=== PATIENT | female | born 1965 | race Caucasian/White ===

== ENCOUNTER 2017-06-09 02:56 | Emergency (ER) | payer MEDICAID, SELFPAY ==
[2017-06-09 02:57] VITALS: BP 151/99; PULSE 84; RESP 17; O2SAT 98; BMI 34.0
[2017-06-09 03:33] VITALS: BP 136/80; PULSE 63; RESP 16; O2SAT 97
--- NOTE | 2017-06-09 03:33 | ED.VISSUMM ---
- ER Visit Summary Date of Service: 06/09/17 Chief Complaint: Acute on chronic hypertension and nausea History of Present Illness: The patient is a 51 F history of anxiety and hypertension. Brayden was watching her granddaughter who is had nausea, vomiting and diarrhea since Saturday night. And who is also patient in the ER currently. Grandmother got nervous because the patient had nausea vomiting diarrhea tonight. And then the grandmother also got nauseated. She thinks when she got nauseated because to be anxious and made her blood pressure go up. She denies any headache or chest pain. She denies any abdominal pain. She herself has not vomited nor had any diarrhea. Physical Examination: Very well appearing middle-aged female. Vital signs are stable afebrile. Her current blood pressure is 159. She does not look septic or toxic. She is in no acute distress. She is well-hydrated. HEENT exam unremarkable moist wheeze membranes. No facial droop. Normal speech. Neck nontender. Lungs clear to auscultation bilaterally. Heart regular rate and rhythm no murmur. Abdomen is soft and nontender. Normal bowel sounds no peritoneal signs. Both the right upper right lower quadrants are unremarkable. She is moving all 4 extremities. Neurovascular intact. Neurologic exam is normal. Back exam is nontender. Test Results: Nursing staff obtain an EKG which is a sinus rhythm rate is 75 with no acute signs of NC or ischemia. Testing. Emergency Department Course and Treatment: Patient has anxiety and is nauseated. Her blood pressure slightly elevated but currently is 151/78. She will be discharged home with a Zofran home pack. Treatment Plan: Zofran as needed for nausea. Return if feeling worse. Disposition: Discharge Impression: Acute on chronic hypertension Acute anxiety. Nausea This note was generated with [employer] software. It may contain incorrect words, spelling, and punctuation that were not noted in review of the chart prior to signing ED Disposition - Plan for ED Patient: Chief Complaint: Hypertension Referrals: Marcus Sánchez III, MD [Primary Care Provider] -
--- NOTE | 2017-06-09 03:36 | ED.DEP ---
ED Disposition - Plan for ED Patient: Disposition: Home or Assisted Living Chief Complaint: Hypertension Instructions: ED Hypertension Conf Out Of Control Referrals: Marcus Sánchez III, MD [Primary Care Provider] - 3-5 Days if not improving Additional Instructions: Zofran as needed for nausea. Plenty of fluids and rest. Watch her blood pressure over the next week. Log your blood pressure twice daily. And if it continually runs higher than 150/90 follow-up with her primary care physician to have your medications evaluated.
--- NOTE | 2017-06-09 03:36 | ED.DCSUM_ITS ---
- ER Visit Summary Date of Service: 06/09/17 Chief Complaint: Acute on chronic hypertension and nausea History of Present Illness: The patient is a 51 F history of anxiety and hypertension. Brayden was watching her granddaughter who is had nausea, vomiting and diarrhea since Saturday night. And who is also patient in the ER currently. Grandmother got nervous because the patient had nausea vomiting diarrhea tonight. And then the grandmother also got nauseated. She thinks when she got nauseated because to be anxious and made her blood pressure go up. She denies any headache or chest pain. She denies any abdominal pain. She herself has not vomited nor had any diarrhea. Physical Examination: Very well appearing middle-aged female. Vital signs are stable afebrile. Her current blood pressure is 159. She does not look septic or toxic. She is in no acute distress. She is well-hydrated. HEENT exam unremarkable moist wheeze membranes. No facial droop. Normal speech. Neck nontender. Lungs clear to auscultation bilaterally. Heart regular rate and rhythm no murmur. Abdomen is soft and nontender. Normal bowel sounds no peritoneal signs. Both the right upper right lower quadrants are unremarkable. She is moving all 4 extremities. Neurovascular intact. Neurologic exam is normal. Back exam is nontender. Test Results: Nursing staff obtain an EKG which is a sinus rhythm rate is 75 with no acute signs of RI or ischemia. Testing. Emergency Department Course and Treatment: Patient has anxiety and is nauseated. Her blood pressure slightly elevated but currently is 151/78. She will be discharged home with a Zofran home pack. Treatment Plan: Zofran as needed for nausea. Return if feeling worse. Disposition: Discharge Impression: Acute on chronic hypertension Acute anxiety. Nausea This note was generated with [employer] software. It may contain incorrect words, spelling, and punctuation that were not noted in review of the chart prior to signing ED Disposition - Plan for ED Patient: Chief Complaint: Hypertension Referrals: Marcus Sánchez III, MD [Primary Care Provider] -
[2017-06-09 03:49] VITALS: BP 130/80
[2017-06-09] MEDS: Ondansetron ODT 4 MG Tablet PO (03:51)
== END 2017-06-09 03:51 | disposition home or self-care (01) ==
PROVIDERS: Emergency Provider Emergency Medicine; Family Provider Family Medicine; PCP Family Medicine
DX: I10 Essential (primary) hypertension (principal); F41.9 Anxiety disorder, unspecified; R11.0 Nausea
CPT/HCPCS: 93005; 99282

== ENCOUNTER 2018-06-12 18:00 | Emergency (ER) | payer MEDICAID, SELFPAY ==
[2018-06-12 18:01] VITALS: BP 154/98; PULSE 79; RESP 16; TEMP 36.7; O2SAT 97; BMI 33.3
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
[2018-06-12] MEDS: Ibuprofen 600 MG Tablet PO (19:09)
[2018-06-12 20:31] VITALS: PULSE 84; RESP 19; O2SAT 98
--- NOTE | 2018-06-12 20:32 | ED.RN ---
THIS NURSE REVIEWED D/C INSTRUCTIONS WITH PT. PT VERBALIZED UNDERSTANDING OF INSTRUCTIONS. PT DENIES FURTHER NEEDS OR QUESTIONS AT THIS TIME. PT AMBULATES FROM ROOM ON OWN WITHOUT ASSISTANCE FROM STAFF
== END 2018-06-12 20:33 | disposition home or self-care (01) ==
PROVIDERS: Emergency Provider Emergency Medicine; Family Provider Family Medicine; PCP Family Medicine
DX: S63.501A Unspecified sprain of right wrist, initial encounter (principal); S80.01XA Contusion of right knee, initial encounter; V43.52XA Car driver injured in collision with other type car in traffic accident, initial encounter; Y93.89 Activity, other specified; Y92.9 Unspecified place or not applicable; I10 Essential (primary) hypertension; Z87.891 Personal history of nicotine dependence
CPT/HCPCS: 73110; 73564; 99284

== ENCOUNTER → 2018-06-16 11:53 | Outpatient (CLI) | payer MEDICAID, SELFPAY ==
[2018-06-12 18:01] VITALS: BMI 33.3
--- NOTE | 2018-06-16 11:57 | BI_ITS ---
MAMMOGRAPHY - BILATERAL SCREENING REASON FOR EXAM: Female, 52 years old. Routine annual screening examination. PERTINENT HISTORY: Non-contributory. TECHNIQUE: Digital bilateral breast michele (3D mammographic acquisition) in the CC and MLO projections. 2-D mediolateral oblique (MLO) and craniocaudad (CC) views of both breasts were obtained. CAD: Full Field Digital Mammography with Computer Added Detection was performed. COMPARISON: Comparison is made with prior outside examination dated March 08, 2016. FINDINGS: Breast Composition: The breasts are heterogeneously dense, which may obscure small masses. There are no dominant masses or suspicious calcifications. Stable appearance of the small bilateral axillary lymph nodes. No other significant abnormalities are identified. There has been no significant change since the prior study. BI/SCREEN MAMM (CAD) W/MICHELE BILAT IMPRESSION: Stable bilateral screening mammogram. Yearly follow-up mammogram recommended. (A) ASSESSMENT CATEGORY: BIRADS Category 2: Benign. A letter regarding these results will be sent to the patient by the facility within 30 days. Approximately 10% of breast cancers are not detected by mammography. A normal mammogram should not delay biopsy of a clinically suspicious abnormality. [id number] Electronically Signed: Wilmar Nunes, at 14:01 EDT , Service support ,
== END ==
PROVIDERS: Family Provider Family Medicine; PCP Family Medicine; Referring Provider Obstetrics & Gynecology; Visit Provider Obstetrics & Gynecology
DX: Z12.31 Encounter for screening mammogram for malignant neoplasm of breast (principal)
CPT/HCPCS: 77063; 77067

== ENCOUNTER 2019-11-22 14:22 | Emergency (ER) | payer MEDICAID, SELFPAY ==
[2018-10-06 13:26] VITALS: BMI 33.3
[2019-11-22 14:23] VITALS: PULSE 83; RESP 16; TEMP 36.3; O2SAT 95; BMI 34.1
--- NOTE | 2019-11-22 14:26 | ED.RN ---
Addendum entered by Narcisa Mijares 11/22/19 14:29: intermittent dizziness as well Original Note: pt describing intemittent pain through her shoulder and post back/shoulder blade and tingling/pain in her left arm. ent to room and called for ekg.
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
--- NOTE | 2019-11-22 15:15 | ED.DCSUM_ITS ---
History of Present Illness <Haile Santacruz - Last Filed: 11/22/19 15:51> Informant: Patient Onset: Month(s) Narrative: 54-year-old female past medical hypertension, anxiety presents with left arm pain and paresthesias. She states when she woke up this morning she felt a dull ache in her left shoulder and a tingling ache in her hand and all digits. She feels like her left shoulder pops. This lasted several minutes and occurred intermittently. She is asymptomatic now. She states this is occurred 1-2 times per month over the last 6 months and she has never been evaluated. Today's episode is similar to previous. Denies chest pain, shortness of breath, cough, nausea, vomiting, diaphoresis. Denies neck pain, radicular symptoms, vision changes, speech changes, weakness, or numbness. No history of stroke/TIA. No cardiac history. <HenryaniyaDanya - Last Filed: 11/22/19 16:20> Chief Complaint: Upper Extremity Injury Past Medical History <Haile Santacruz - Last Filed: 11/22/19 15:51> Past Medical History: - - Hypertension, anxiety Smoking Status: Former smoker <Danya Osborne - Last Filed: 11/22/19 16:20> - Allergies and Home Meds Allergies/Adverse Reactions: Allergies azithromycin [From Zithromax] Allergy (Verified 11/22/19 14:23) Hives bee venom protein (honey bee) Allergy (Verified 11/22/19 14:23) Hives Primary Care Physician: Marcus Sánchez III, MD [Primary Care Provider] - Review of Systems General: Denies: Chills, Fever, Sweats Eyes: Denies: Visual changes - bilaterally, Diplopia ENT: Denies: Rhinorrhea, Sore throat Cardiovascular: Denies: Chest pain, Palpitations Respiratory: Denies: Dyspnea, Cough, Dyspnea on exertion, Orthopnea Gastrointestinal: Denies: Abdominal pain, Nausea, Vomiting, Diarrhea, Melena, Hematochezia Genitourinary: Denies: Dysuria, Hematuria, Frequency Musculoskeletal: Reports: Extremity Pain. Denies: Neck pain, Back pain, Swelling Skin: Denies: Rash, Wounds Neurological: Reports: Parasthesia. Denies: Headache, Weakness, Numbness <[place],Danya - Last Filed: 11/22/19 16:20> Physical Exam Vital Signs/Narrative: Vital Signs Temp Pulse Resp Pulse Ox 11/22/19 14:23 97.3 F L 83 16 95 <Haile Santacruz - Last Filed: 11/22/19 15:51> Vital Signs/Narrative: Vital Signs Temp Pulse Resp Pulse Ox 11/22/19 14:23 97.3 F L 83 16 95 General: Well nourished, Well developed, No Acute Distress Head: Normocephalic, Atraumatic Eyes: Perrl, EOMI ENT: Moist mucous membranes, No rhinorrhea Neck: Supple, Nontender Cardiovascular: Regular rate, Regular rhythm, No murmurs Respiratory: No distress, CTA bilaterally, Chest nontender Abdomen: Soft, Nontender, Nondistended, Normal bowel sounds Back: Nontender, Normal Inspection Extremities: No edema, - - Mild tenderness over the left deltoids. No bony tenderness. Full range of motion of the left upper extremity. Strength and sensation intact. Skin: Normal color, No rash Neurological: Alert, Oriented x3, Cranial nerves II-XII grossly intact, Normal Strength, Normal Sensation Psychological: Normal affect, Normal Mood <HenryDanya kwan - Last Filed: 11/22/19 16:20> Diagnostic/Tx/Re-eval - Medical Decision Making Patient was seen please have the physician clinical laboratory assistant agree with history physical as above patient leaning of a vague pain to the left shoulder intermittently for some time she has no history of cardiovascular order no history of CT PE or DVT episode today lasted for few minutes, on exam vital signs are unremarkable she is resting company the bed full range of motion of the shoulder head neck chest unremarkable at this time given all the above she will agreed evaluation see the chart for full details <QuereneeDavidbonifacio - Last Filed: 11/22/19 15:51> Clinical Impression(s) from Imaging Studies Chest X-Ray 11/22/19 15:00 IMPRESSION: Normal x-ray examination of the chest. Electronically Signed: Adam Velazco, at 15:59 EDT Tel , Service support , Laboratory Data 11/22/19 11/22/19 15:10 15:10 WBC 6.1 RBC 4.92 Hgb 14.3 Hct 43.9 MCV 89.2 MCH 29.1 MCHC 32.6 RDW Std Deviation 43.3 RDW Coeff of Ivania 13.3 Plt Count 209 MPV 10.6 Immature Gran % (Auto) 0.300 Neut % (Auto) 75.3 H Lymph % (Auto) 15.9 L [place] % (Auto) 6.4 Eos % (Auto) 1.8 Baso % (Auto) 0.3 Absolute Neuts (auto) 4.6 Absolute Lymphs (auto) 0.97 Nucleated RBC % 0 Sodium 140 Potassium 3.6 Chloride 107 Carbon Dioxide 29.0 Anion Gap 4 L BUN 12 Creatinine 0.83 Estim Creat Clear Calc 69.72 Est GFR (MDRD) Af Amer 92 Est GFR (MDRD) Non-Af 76 BUN/Creatinine Ratio 14.5 Glucose 111 H Calcium 9.1 Troponin I < 0.015 - Rhythm Strip Rhythm Strip: Sinus Rhythm Rate: 85 Ectopy: None - Medical Decision Making Patient presented with vague left shoulder pain and paresthesias to the left arm. She has no symptoms here. Has been a chronic issue occurring intermittently over the last 6 months. She appears well nontoxic. Vital signs within normal limits. She has no chest pain or respiratory symptoms and no cardiac history. On exam she is resting comfortably in the bed. Has no neck pain and full range of motion of the shoulder with strength and sensation int act. Normal neurological exam. No neck pain or radicular symptoms which would indicate cervical etiology. I have no concern for TIA/stroke. Due to intermittent symptoms with left arm pain, cardiac work-up was obtained. EKG shows normal sinus rhythm with no signs of ischemia. Labs troponin, and chest x-ray are normal. I have low suspicion for ACS and heart score is 2. Patient was advised to follow-up with her PCP so she can have a stress test. He was agreeable with this plan and discharged home in stable condition. <Danya Osborne - Last Filed: 11/22/19 16:20> ED Disposition <Haile Santacruz - Last Filed: 11/22/19 15:51> <Danya Osborne - Last Filed: 11/22/19 16:20> - Plan for ED Patient: Disposition: Home or Assisted Living Diagnosis: Shoulder pain, left, Paresthesia and pain of extremity Instructions: ED JOINT PAIN Referrals: Marcus Sánchez III, MD [Primary Care Provider] -
[2019-11-22 15:21] LABS: Absolute Lymphocyte Count 0.97 X10^3/uL (0.83-4.51); Absolute Neutrophil Count 4.6 X10^3/uL (2.0-7.7); Basophil# 0.02 X10^3/uL; Basophil% 0.3 % (0-1); Eosinophil# 0.11 X10^3/uL; Eosinophils% 1.8 % (0-5); Hematocrit 43.9 % (37-47); Hemoglobin 14.3 g/dL (12.0-15.0); Lymphocyte # 0.97 X10^3/ul (4.0); Lymphocyte % 15.9 % (19-41); Mean Corp Hgb Conc 32.6 g/dL (32-36); Mean Corpuscular Hgb 29.1 pg (27.0-32.0); Mean Corpuscular Volume 89.2 fL (81-99); Mean Platelet Vol. 10.6 fl (6.2-12.0); Monocyte# 0.39 X10^3/uL; Monocyte% 6.4 % (0-10); NRBC Flagged by Analyzer 0 % (0-5); Neutrophil # 4.58 X10^3/uL (2.7-7.7); Neutrophil % 75.3 % (47-70); Platelet Count 209 K/mm3 (150-450); RBC Distribution Width CV 13.3 % (11.6-14.6); RBC Distribution Width SD 43.3 fl (35.1-43.9); Red Blood Count 4.92 M/mm3 (4.2-5.4); White Blood Count 6.1 K/mm3 (4.4-11.0)
--- NOTE | 2019-11-22 15:34 | EKG12_ITS ---
Test Reason : LEFT ARM & BACK PAIN Blood Pressure : / mmHG Vent. Rate : 085 BPM Atrial Rate : 085 BPM P-R Int : 168 ms QRS Dur : 092 ms QT Int : 368 ms P-R-T Axes : 065 -42 046 degrees QTc Int : 437 ms Normal sinus rhythm Left axis deviation Abnormal ECG Confirmed by WAQAR SMITH, CATRACHO ([id number]), newspaper editor managing REINA AUGUSTIN ([id number]) on 11/25/2019 10:05:41 AM Referred By: HOWARD Confirmed By:CATRACHO ZAVALETA MD
[2019-11-22 15:52] LABS: Anion Gap 4 (5-15); BUN 12 mg/dL (7-18); BUN/Creat Ratio 14.5 RATIO (10-20); Calcium,Total 9.1 mg/dL (8.5-10.1); Chloride 107 mmol/L (98-107); Creatinine, Serum 0.83 mg/dL (0.55-1.02); EST Glomerular Filtration Rate 76 mL/min (>60); Est Glom Filt Rate - Afr Amer 92 mL/min (>60); Estimated Creatinine Clearance 69.72 ml/min; Glucose 111 mg/dL (74-106); Potassium 3.6 mmol/L (3.5-5.1); Sodium Level 140 mmol/L (136-145)
[2019-11-22 16:48] VITALS: BP 148/78; PULSE 81; RESP 16; O2SAT 98
== END 2019-11-22 16:49 | disposition home or self-care (01) ==
PROVIDERS: Emergency Provider Physician Assistant; PCP Family Medicine
DX: M25.512 Pain in left shoulder (principal); R20.2 Paresthesia of skin; I10 Essential (primary) hypertension
CPT/HCPCS: 71045; 80048; 84484; 85025; 93005; 99283; A4216

== ENCOUNTER 2020-04-06 21:01 | Emergency (ER) | payer MEDICAID, SELFPAY ==
[2020-04-06 21:03] VITALS: BP 178/106; PULSE 73; RESP 14; TEMP 36.6; O2SAT 97; BMI 35.1
--- NOTE | 2020-04-06 21:18 | EKG12_ITS ---
Test Reason : HTN Blood Pressure : / mmHG Vent. Rate : 061 BPM Atrial Rate : 061 BPM P-R Int : 188 ms QRS Dur : 094 ms QT Int : 422 ms P-R-T Axes : 059 -35 032 degrees QTc Int : 424 ms Normal sinus rhythm Left axis deviation Abnormal ECG Confirmed by WAQAR SMITH, CATRACHO ([id number]), metropolitan editor REINA AUGUSTIN ([id number]) on 04/11/2020 10:45:12 AM Referred By: EVER Confirmed By:CATRACHO ZAVALETA MD
[2020-04-06] MEDS: Acetaminophen 500 MG Tablet 1000 MG PO (21:32)
[2020-04-06 21:34] LABS: Absolute Lymphocyte Count 1.75 X10^3/uL (0.83-4.51); Absolute Neutrophil Count 4.3 X10^3/uL (2.0-7.7); Basophil# 0.04 X10^3/uL; Basophil% 0.6 % (0-1); Eosinophil# 0.21 X10^3/uL; Eosinophils% 3.2 % (0-5); Hematocrit 45.4 % (37-47); Lymphocyte # 1.75 X10^3/ul (4.0); Lymphocyte % 26.3 % (19-41); Mean Corpuscular Hgb 29.1 pg (27.0-32.0); Mean Corpuscular Volume 88.2 fL (81-99); Mean Platelet Vol. 10.5 fl (6.2-12.0); Monocyte# 0.35 X10^3/uL; Monocyte% 5.3 % (0-10); NRBC Flagged by Analyzer 0 % (0-5); Neutrophil # 4.29 X10^3/uL (2.7-7.7); Neutrophil % 64.3 % (47-70); Platelet Count 225 K/mm3 (150-450); RBC Distribution Width SD 42.1 fl (35.1-43.9); Red Blood Count 5.15 M/mm3 (4.2-5.4); White Blood Count 6.7 K/mm3 (4.4-11.0)
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
[2020-04-06 22:25] LABS: Anion Gap 4 (5-15); BUN 13 mg/dL (7-18); BUN/Creat Ratio 16.3 RATIO (10-20); Chloride 107 mmol/L (98-107); EST Glomerular Filtration Rate 80 mL/min (>60); Est Glom Filt Rate - Afr Amer 96 mL/min (>60); Estimated Creatinine Clearance 72.34 ml/min; Glucose 91 mg/dL (74-106); Potassium 3.9 mmol/L (3.5-5.1); Sodium Level 140 mmol/L (136-145)
--- NOTE | 2020-04-06 22:37 | ED.DCSUM_ITS ---
- ER Visit Summary Date of Service: 04/06/20 Chief Complaint: High blood pressure History of Present Illness: The patient is a [address] Marcus yuen. She has a history of high blood pressure and is on 20 mg of lisinopril a day and 25 mg of metoprolol a day and has been for the past 3 years. States that her blood pressure usually runs 130/80. Tonight it was 178/106. Patient denies any chest pain or shortness of breath. She has a headache that is 3-10 in severity that she described as aching. She denies any numbness or weakness. On review of systems patient reports that her right eye has been pink for the past few days. She denies any pain. No change in her vision. Has not been matting. She does not wear contacts. Reports that she started a new job at [employer] 3 weeks ago and has had a rash to her forearms bilaterally. States that last night it was hives. Tonight it is much improved. She believes this is due to stress. Physical Examination: Vitals: Stable. Afebrile. General: Well-nourished and well-developed. Head: Normocephalic atraumatic. Eyes: Erythema to the right eye. No subconjunctival hemorrhage. No exudate. She has no pain with extraocular motions. Pupils equal round and reactive. Neck: Supple, no lymphadenopathy. No JVD. Nontender. Cardiovascular: Regular rate and rhythm. No murmurs. Respiratory: No respiratory distress. Clear to auscultation bilaterally. Abdominal: Soft, nontender, nondistended, normal bowel sounds. No guarding, rebound, or peritoneal signs. Back: Nontender. Extremities: Nontender, no edema. Skin: Scattered erythema over the front of her forearms bilaterally. No urticarial lesions. No petechiae. Neurologic: Alert and oriented ?3. Cranial nerves II through XII are intact. Normal strength and sensation. Psych: Normal affect. Test Results: EKG is sinus at 61 with Q waves in leads III and aVF. This is unchanged from November 2019. Troponin is negative. Chem-7 is normal. CBC is normal. Clinical Impression(s) from Imaging Studies Brain CT 04/06/20 21:41 IMPRESSION: Normal unenhanced CT scan of the brain. Electronically Signed: Crystal Nguyen MD at 22:05 EST , Service support , Emergency Department Course and Treatment: Patient's repeat blood pressure is 188/80 and 187/92. She was given Tylenol for her headache and is resting comfortably. She had bacitracin ophthalmic placed in her right eye. Treatment Plan: Patient will have 12.5 mg of hydrochlorothiazide added to her lisinopril. Instructed to follow-up with Dr. Marcus Sánchez iii in 1 week to get her blood pressure rechecked. Return to the emergency department for any worsening symptoms. Disposition: To home in improved and stable condition. Impression: 1. Hypertension. 2. Conjunctivitis on right. This note was generated with App[employer] dictation software. It may contain incorrect words, spelling, and punctuation that were not noted in review of the chart prior to signing ED Disposition - Plan for ED Patient: Instructions: ED High Blood Pressure ... Prescriptions: Lisinopril/Hydrochlorothiazide [Lisinopril-Hctz 20-12.5 mg Tab] 1 ea PO DAILY #30 tab Prescription Printed Referrals: Marcus Sánchez III, MD [Primary Care Provider] - 1 Week
[2020-04-06 22:55] VITALS: BP 171/87; PULSE 67; RESP 19; O2SAT 99
== END 2020-04-06 22:55 | disposition home or self-care (01) ==
LOC: ED 22:01
PROVIDERS: Emergency Provider Emergency Medicine; PCP Family Medicine
DX: I10 Essential (primary) hypertension (principal); H10.9 Unspecified conjunctivitis; Z79.899 Other long term (current) drug therapy
CPT/HCPCS: 70450; 80048; 84484; 85025; 93005; 99284; A4216

== ENCOUNTER 2020-10-16 10:37 | Emergency (ER) | payer MEDICAID, SELFPAY ==
[2020-10-16 10:38] VITALS: BP 176/84; PULSE 74; RESP 16; TEMP 36.3; O2SAT 100; BMI 34.3
[2020-10-16 10:53] VITALS: BP 159/82; PULSE 70; RESP 16; O2SAT 98
[2020-10-16 11:10] VITALS: BP 152/67; PULSE 66; RESP 16; O2SAT 98
--- NOTE | 2020-10-16 11:11 | EX.ED.DYSGE1 ---
HPI History of Present Illness Chief Complaint: Hypertension Narrative Narrative: 55-year-old female presenting with elevated blood pressure today. She states that she does not check this often. She is on lisinopril 20 mg p.o. daily. She was previously on metoprolol because she and her primary care physician could not determine whether she had tachycardia due to anxiety and elevated blood pressure due to anxiety or whether it was simply elevated blood pressure. She is currently not on metoprolol. She has been on lisinopril 20 mg p.o. daily long-term. She states she was in an verbal altercation with one of her children this morning and became upset and noticed that she had a mild headache and her blood pressure was elevated. Patient states she previously has seen Dr. Sánchez who is now retired. She states that she has not established with a new primary care physician. She states she still has lisinopril. She denies lightheadedness, visual changes, chest pain, shortness of breath. She felt otherwise well prior to this morning. PFSH PFSH Medical History Anxiety Hypertension Home Medications cannabidiol 1 mg PO PRN PRN 10/16/20 [History Last Taken Unknown] lisinopril 20 mg PO DAILY 10/16/20 [History Last Taken Unknown] Allergy/AdvReac Type Severity Reaction Status Date / Time azithromycin [From Zithromax] Allergy Hives Verified 10/16/20 10:40 bee venom protein (honey bee) Allergy Hives Verified 10/16/20 10:40 Family History Father Hypertension Mother Hypertension Surgical History H/O section H/O: hysterectomy Social History number of children: 5 current occupational status: employed current occupation: [employer] Smoking Status: Never smoker second hand exposure: Yes alcohol intake: never substance use type: does not use what type of physical activity do you participate in: none seatbelt use: always do you feel safe at home: Yes ROS ROS ED Constitutional Constitutional ED: Denies chills, fever(s) or sweats Eyes Eyes: Denies blurry vision or change in vision ENT ENT ED: Denies ear pain, rhinorrhea or sore throat Cardiovascular Cardiovascular: Denies chest pain, palpitations or racing heartbeat Respiratory/Chest Respiratory/Chest: Denies cough, dyspnea or sputum Gastrointestinal Gastrointestinal: Denies abdominal pain, constipation, diarrhea or vomiting Genitourinary Genitourinary ED: Denies dysuria, hematuria or urinary frequency Musculoskeletal Musculoskeletal: Denies arthralgias, myalgias or neck pain Integumentary Denies abscess, Abrasions or rash Neurologic Neurologic: Reports headache(s); Denies abnormal speech, disequilibrium, focal weakness, paresthesias or weakness Psychiatric Psychiatric: Denies anxiety, depression, suicidal ideation or suicidal thoughts Endocrine Endocrinology: Denies polydipsia or polyuria EXAM Physical Exam Const Vital Signs: 10/16/20 10:38 10/16/20 10:52 10/16/20 10:53 Temperature 97.4 F L Temperature Source Temporal Pulse Rate 74 70 Respiratory Rate 16 16 Respiratory Effort Normal Non-Labored Respiratory Pattern Normal Blood Pressure 176/84 H 159/82 H Blood Pressure Mean 114 107 Pulse Ox 100 98 Oxygen Delivery Method Room Air Room Air 10/16/20 11:10 10/16/20 11:30 10/16/20 12:18 Temperature Temperature Source Pulse Rate 66 55 L 57 L Respiratory Rate 16 17 16 Respiratory Effort Respiratory Pattern Blood Pressure 152/67 H 152/72 H 147/70 H Blood Pressure Mean 95 98 Pulse Ox 98 98 98 Oxygen Delivery Method Room Air Room Air General Appearance ED: Negative for pallor HEENT Reports normocephalic, head/scalp atraumatic and moist mucous membranes Eyes PERRL and EOMs intact bilaterally Neck no lymphadenopathy and supple Chest Wall inspection of chest normal and palpation of chest normal Resp normal respiratory effort and clear to auscultation bilaterally Auscultation: Negative for rales, rhonchi or wheezes Cardio regular rate and regular rhythm Narrative: Deferred Extremity normal to inspection Neuro oriented x3, CN's II-XII intact bilaterally, moves all extremities, no focal motor deficits and no sensory deficits noted Sensorium / Orientation: alert, oriented to person, oriented to place and oriented to time Motor Exam: strength 5/5 throughout Psych mental status grossly normal Appearance: grossly normal and appropriate Attitude: No agitated Skin no rashes or lesions noted and no wounds General Skin Exam: Negative for jaundice or pallor MDM MDM MDM Narrative Medical decision making narrative: Patient presenting with elevated blood pressure. Her initial blood pressure is 176/84. After monitoring her blood pressure has come down to 147/70. Other than a mild headache earlier she has no other complaints. She denies chest pain, palpitations, shortness of breath. She does not have any focal neurologic deficits or lateralizing signs or symptoms. I do not believe the patient needs lab work or imaging. I did discuss with Dr. Guzman close follow-up. She is on lisinopril 20 mg p.o. daily and he recommended keeping this dose. She will keep a blood pressure diary and follow-up as an outpatient to determine whether she needs increase in her lisinopril. It is possible that given the stress today her blood pressure could be mildly elevated and again she has not checked her blood pressure in a while. She is amenable to this plan and she is discharged home in stable condition. She was given return precautions. Impression: 1. Elevated blood pressure established?[id number] Discharge Plan Triage Chief Complaint: Hypertension ED Provider: Diomedes Traylor Dx/Rx/DC Orders Instructions: ED Hypertension, Established Prescriptions: No Action lisinopril 20 mg tablet 20 mg PO DAILY RF: 0 cannabidiol 100 mg/mL Solution 1 mg PO PRN PRN (Reason: Anxiety) RF: 0 Primary Care Provider: Care Physician,No Primary Referrals: Fermin Guzman MD [STAFF PHYSICIAN] - As soon as possible Care Physician,No Primary [Primary Care Provider] - Disposition Disposition: Home, Self Care Discharge Date/Time: 10/16/20 12:20
[2020-10-16 11:30] VITALS: BP 152/72; PULSE 55; RESP 17; O2SAT 98
[2020-10-16 12:18] VITALS: BP 147/70; PULSE 57; RESP 16; O2SAT 98
== END 2020-10-16 12:20 | disposition home or self-care (01) ==
PROVIDERS: Emergency Provider Student in an Organized Health Care Education/Training Program
DX: I10 Essential (primary) hypertension (principal); Z79.899 Other long term (current) drug therapy
CPT/HCPCS: 99282

== ENCOUNTER 2021-04-21 21:50 | Emergency (ER) | payer MEDICAID, SELFPAY ==
[2021-04-21 21:55] VITALS: BP 157/103; PULSE 80; RESP 17; TEMP 36.5; BMI 80.4
[2021-04-21] MEDS: Famotidine 200 MG/20 ML MDV 20 MG in 0.9% Normal Saline (Pres. free 8 ML 300 MG IV (22:07)
[2021-04-21] MEDS: DiphenhydrAMINE 50 MG/ML Syringe 25 MG IV (22:07)
[2021-04-21] MEDS: MethylPREDNISolone 125 MG/2 ML Vial IV (22:07)
[2021-04-21 22:14] VITALS: BP 165/100; PULSE 88; RESP 21; O2SAT 99
--- NOTE | 2021-04-21 22:14 | EDS_ITS ---
HPI History of Present Illness Chief Complaint: Allergic Reaction Narrative Narrative: Patient presents with some swelling of her throat. She is also had some flushing of her skin but only in the neck region for the past day. It is not itchy. She has no fevers chills cough or congestion. She has no difficulty breathing. She has no voice changes. She simply feels some swelling around the lips and swelling in her throat. She is on lisinopril daily for the past few years, she has not taken her lisinopril today, she usually takes it in the evening and has not taken it this evening. [facility] Medical History Anxiety Hypertension Home Medications lisinopril 20 mg PO DAILY 10/16/20 [History Last Taken Unknown] hydrochlorothiazide 25 mg PO DAILY #14 tab 04/21/21 [Rx Last Taken Unknown] prednisone 40 mg PO DAILY #8 tab 04/21/21 [Rx Last Taken Unknown] Allergy/AdvReac Type Severity Reaction Status Date / Time azithromycin [From Zithromax] Allergy Hives Verified 04/21/21 22:15 bee venom protein (honey bee) Allergy Hives Verified 04/21/21 22:15 lisinopril Allergy Angioedema Verified 04/21/21 22:02 Family History Father Hypertension Mother Hypertension Surgical History H/O section H/O: hysterectomy Social History number of children: 5 current occupational status: employed current occupation: [employer] Smoking Status: Never smoker second hand exposure: Yes alcohol intake: never substance use type: does not use what type of physical activity do you participate in: none seatbelt use: always do you feel safe at home: Yes ROS ROS ED ROS Narrative Past medical history: Reviewed Medications: Reviewed includes her lisinopril Social history: Noncontributory Review of systems: All systems negative except as indicated General: No fever Eyes: No visual changes ENT: As in HPI Neck: No neck pain Cardiovascular: No chest pain Respiratory: No shortness of breath or cough Gastrointestinal: No abdominal pain, nausea vomiting or diarrhea Genitourinary: No dysuria Musculoskeletal: Denies myalgias no difficulty with ambulation Skin: As in HPI Neurological: No memory loss, confusion or any focal weakness Psych: No recent behavioral changes Hematologic: No easy bleeding or easy bruising EXAM Physical Exam Narrative Exam Narrative: Physical exam General: Well nourished, Well developed, somewhat anxious appearing Head: Normocephalic, Atraumatic Eyes: Conjunctiva not pale ENT: Patient has a normal voice. She has a normal posterior oropharynx with a normal uvula without any signs of peritonsillar abscess, soft palate is normal. I do not appreciate any edema of the tongue or lips. Neck: Supple, Nontender, No lymphadenopathy Cardiovascular: Regular rate, Regular rhythm Respiratory: No distress, CTA bilaterally Abdomen: Soft, Nontender, Nondistended Back: Nontender, Normal Inspection. Negative for: CVA tenderness Extremities: Nontender, No edema Skin: She has a few patches of redness around her neck, it is raised by blanching. It appears allergic. Neurological: Alert, Normal Strength, Normal Sensation Psychological: Normal affect Const Vital Signs: 04/21/21 21:55 04/21/21 22:14 04/21/21 22:38 Temperature 97.7 F L Temperature Source Temporal Pulse Rate 80 88 65 Respiratory Rate 17 21 H 18 Blood Pressure 157/103 H 165/100 H 168/86 H Blood Pressure Mean 121 121 113 Pulse Ox 99 98 Oxygen Delivery Method Room Air Room Air 04/21/21 23:13 Temperature Temperature Source Pulse Rate 98 Respiratory Rate 16 Blood Pressure 160/73 H Blood Pressure Mean 102 Pulse Ox 99 Oxygen Delivery Method Room Air MDM MDM MDM Narrative Medical decision making narrative: Patient is given Solu-Medrol, Benadryl, Pepcid. She did improve on not sure about the etiology of her allergic reaction however she did have some bulbar involvement and she is on lisinopril and therefore I believe to be safe she should be off the lisinopril for the rest of her life. I will transition her to hydrochlorothiazide until she can see her PCP. Otherwise she will be discharged after observation. Discharge Plan Triage Chief Complaint: Allergic Reaction ED Provider: Francis Blackburn Dx/Rx/DC Orders Clinical Impression: Allergic reaction Instructions: ED General Allergic Reactions Prescriptions: New hydrochlorothiazide 25 mg tablet 25 mg PO DAILY Qty: 14 RF: 0 prednisone 20 mg tablet 40 mg PO DAILY Qty: 8 RF: 0 No Action lisinopril 20 mg tablet 20 mg PO DAILY RF: 0 Primary Care Provider: Musa Mcguire Referrals: Musa Mcguire MD [Primary Care Provider] - 2 Days Activity Restrictions/Additional Instructions: You may have a severe allergy to lisinopril or any kind of KALYN inhibitor. You should not take any of these medications for the rest of your life in order to avoid airway blockage and possible Disposition Disposition: Home, Self Care
[2021-04-21 22:38] VITALS: BP 168/86; PULSE 65; RESP 18; O2SAT 98
[2021-04-21 23:13] VITALS: BP 160/73; PULSE 98; RESP 16; O2SAT 99
[2021-04-22] VITALS (7 sets, daily range): BP systolic 134–149; BP diastolic 68–90; PULSE 58–78; RESP 14–24; O2SAT 96–98
[2021-04-22] MEDS: DiphenhydrAMINE 50 MG/ML Syringe 12.5 MG IV (01:52)
--- NOTE | 2021-04-22 03:32 | ED.RN ---
STATES SHE DOES NOT FEEL COMFORTABLE GOING HOME YET AND WANTS TO STAY UNTIL 0600. DR GREEN IS AWARE
== END 2021-04-22 06:45 | disposition home or self-care (01) ==
PROVIDERS: Emergency Provider Emergency Medicine; PCP Family Medicine; Visit Provider Emergency Medicine
DX: T78.40XA Allergy, unspecified, initial encounter (principal); X58.XXXA Exposure to other specified factors, initial encounter; I10 Essential (primary) hypertension; Z79.899 Other long term (current) drug therapy
CPT/HCPCS: 96374; 96375; 96376; 99283; A4216; J3490

== ENCOUNTER 2021-04-22 22:45 | Emergency (ER) | payer MEDICAID, SELFPAY ==
[2021-04-22 22:45] VITALS: BP 179/102; PULSE 95; RESP 18; TEMP 35.6; O2SAT 100; BMI 33.3
[2021-04-22] MEDS: cloNIDine HCl 0.1 MG Tablet PO (23:16)
[2021-04-22 23:24] VITALS: BP 144/85; PULSE 89; RESP 15; O2SAT 97
--- NOTE | 2021-04-23 00:17 | EDS_ITS ---
HPI History of Present Illness Chief Complaint: Hypertension Informant: patient Onset/Context/Timing Onset: Today Quality: Flushed, pressure in head and ears Current Severity: Moderate Maximum Severity: Moderate Worsened by: Nothing Relieved by: Nothing Associated Symptoms Associated Symptoms: No chest discomfort or shortness of breath or focal neurologic symptoms Narrative Narrative: Patient was here last night for a reaction to lisinopril that was suspected, so it was discontinued and she was placed on HCTZ instead, she took that today for the first time this afternoon, she noticed her blood pressure was up anywhere from 140-189 systolic, and she has been having the above symptoms today gradual in onset. No syncope. Her blood pressure is stayed up and she has felt like this with elevations in her blood pressure before. She was only on the lisinopril for blood pressure before she had the mild angioedema-type symptoms. Those have not recurred. She is also put on 4 days of prednisone which she started as well. [facility] Medical History Anxiety Hypertension Home Medications hydrochlorothiazide 25 mg PO DAILY #14 tab 04/21/21 [Rx Last Taken Unknown] prednisone 40 mg PO DAILY #8 tab 04/21/21 [Rx Last Taken Unknown] clonidine HCl 0.1 mg PO BID PRN #14 tab MDD 0.4mg 04/23/21 [Rx Last Taken Unknown] Allergy/AdvReac Type Severity Reaction Status Date / Time azithromycin [From Zithromax] Allergy Hives Verified 04/22/21 22:49 bee venom protein (honey bee) Allergy Hives Verified 04/22/21 22:49 lisinopril Allergy Angioedema Verified 04/22/21 22:49 Family History Father Hypertension Mother Hypertension Surgical History H/O section H/O: hysterectomy Social History number of children: 5 current occupational status: employed current occupation: [employer] Smoking Status: Never smoker second hand exposure: Yes alcohol intake: never substance use type: does not use what type of physical activity do you participate in: none seatbelt use: always do you feel safe at home: Yes ROS ROS ED Constitutional Constitutional ED: Denies chills or fever(s) Eyes Eyes: Denies change in vision or diplopia ENT ENT ED: Reports tinnitus; Denies rhinorrhea or sore throat Cardiovascular Cardiovascular: Denies chest pain or palpitations Respiratory/Chest Respiratory/Chest: Denies cough or dyspnea Gastrointestinal Gastrointestinal: Denies abdominal pain, diarrhea, nausea or vomiting Genitourinary Genitourinary ED: Denies dysuria or hematuria Musculoskeletal Musculoskeletal: Denies back pain or neck pain Integumentary Denies abscess or rash Neurologic Neurologic: Reports headache(s); Denies paresthesias or weakness Psychiatric Psychiatric: Denies anxiety or suicidal thoughts Endocrine Endocrinology: Reports flushing; Denies cold intolerance or excessive sweating EXAM Physical Exam Const Vital Signs: 04/22/21 22:45 04/22/21 23:23 04/22/21 23:24 Temperature 96.1 F L Temperature Source Temporal Pulse Rate 95 89 Respiratory Rate 18 15 Respiratory Effort Normal Non-Labored Respiratory Pattern Normal Blood Pressure 179/102 H 144/85 H Blood Pressure Mean 127 104 Pulse Ox 100 97 Oxygen Delivery Method Room Air Room Air Positive well nourished and well developed General Appearance ED: well developed and NAD HEENT Reports moist mucous membranes HEENT Narrative: Mild facial flushing normocephalic and atraumatic Eyes PERRL and EOMs intact bilaterally Neck full ROM and supple Resp normal respiratory effort and clear to auscultation bilaterally Cardio regular rate, regular rhythm and no murmurs GI non-tender and non-distended Auscultation: normoactive bowel sounds Palpation: soft Back/Spine no CVA tenderness General Back: other FROM Extremity normal to inspection General Extremety ED: Negative for edema, pulses abnormal or tenderness General Extremity: Negative for edema or pulses abnormal Neuro oriented x3, CN's II-XII intact bilaterally and no sensory deficits noted Sensorium / Orientation: awake and alert Motor Exam: strength 5/5 throughout Skin no rashes or lesions noted and no wounds MDM MDM MDM Narrative Medical decision making narrative: Indeed patient's blood pressure is up. She was given clonidine 0.1 mg and observed. Her blood pressure came down to 144/85 in all of her symptoms either resolved or improved, she still has a mild headache and she was given ibuprofen for that but I think she can go home continue the HCTZ, and will prescribe her clonidine to use as needed and so she can follow-up with her doctor. All questions answered she is comfortable with the plan. Discharge Plan Triage Chief Complaint: Hypertension ED Provider: Ganesh Finley Dx/Rx/DC Orders Clinical Impression: Episode of hypertension Instructions: ED High Blood Pressure Hypertension Prescriptions: New clonidine HCl 0.1 mg tablet 0.1 mg PO BID MDD 0.4mg PRN (Reason: SBP > 160) Qty: 14 RF: 0 No Action hydrochlorothiazide 25 mg tablet 25 mg PO DAILY Qty: 14 RF: 0 prednisone 20 mg tablet 40 mg PO DAILY Qty: 8 RF: 0 Stand Alone Forms: ED Work / School Excuse Primary Care Provider: Musa Mcguire Referrals: Musa Mcguire MD [Primary Care Provider] - As soon as possible Disposition Disposition: Home, Self Care
[2021-04-23 00:29] VITALS: BP 130/78; PULSE 68; RESP 15; O2SAT 95
[2021-04-23] MEDS: Ibuprofen 600 MG Tablet PO (00:30)
--- NOTE | 2021-04-25 15:30 | CASEMGMT ---
CARLOS MOROCHO ED follow-up: Date of ER visit: 04/22/2021 Presenting ER complaint: hypertension CARLOS MOROCHO placed call to patient's telephone number listed on demographics and patient answered. CARLOS MOROCHO introduced self and role at [facility]. Patient states doing well since ER visit and taking HCTZ as prescribed. Patient confirmed she picked up prescription medication from the pharmacy but has not needed to use PRN BP medication. Patient states she completed course of Prednisone today. Patient reports she had a follow-up appointment with PCP yesterday. Patient denies questions, needs or concerns and expressed appreciation for follow-up call. CARLOS Pack CM
== END 2021-04-23 00:35 | disposition home or self-care (01) ==
PROVIDERS: Emergency Provider Emergency Medicine; PCP Family Medicine; Visit Provider Emergency Medicine
DX: I10 Essential (primary) hypertension (principal); Z79.899 Other long term (current) drug therapy
CPT/HCPCS: 99283

== ENCOUNTER 2021-05-11 12:22 | Outpatient (CLI) | payer MEDICAID, SELFPAY ==
--- NOTE | 2021-05-11 12:24 | BI_ITS ---
MAMMOGRAPHY - BILATERAL SCREENING REASON FOR EXAM: Female, 55 years old. Routine annual screening examination. PERTINENT HISTORY: Non-contributory. TECHNIQUE: Digital bilateral breast michele (3D mammographic acquisition) in the CC and MLO projections. 2-D mediolateral oblique (MLO) and craniocaudad (CC) views of both breasts were obtained. CAD: Full Field Digital Mammography with Computer Added Detection was performed. COMPARISON: Comparison is made with prior study dated 06/16/2018. FINDINGS: Breast Composition: The breasts are heterogeneously dense, which may obscure small masses. There are no dominant masses or suspicious calcifications. Stable small benign-appearing bilateral axillary lymph nodes. No other significant abnormalities are identified. There has been no significant change since the prior study. BI/SCRN MAMM (CAD)W/MICHELE BILAT IMPRESSION: Stable bilateral screening mammogram. Yearly follow-up mammogram recommended. (A) ASSESSMENT CATEGORY: BIRADS Category 1: Negative. A letter regarding these results will be sent to the patient by the facility within 30 days. Approximately 10% of breast cancers are not detected by mammography. A normal mammogram should not delay biopsy of a clinically suspicious abnormality. [id number] Electronically Signed: Wilmar Nunes MD at 13:03 EDT ,
== END 2021-05-11 23:59 | disposition home or self-care (01) ==
LOC: OPBI 12:23
PROVIDERS: PCP Family Medicine; Visit Provider Obstetrics & Gynecology
DX: Z12.31 Encounter for screening mammogram for malignant neoplasm of breast (principal)
CPT/HCPCS: 77063; 77067

== ENCOUNTER 2022-11-19 20:57 | Emergency (ER) | payer MEDICAID, SELFPAY ==
[2022-11-19 20:58] VITALS: BP 161/78; PULSE 88; RESP 16; TEMP 36.6; O2SAT 99; BMI 35.2
--- NOTE | 2022-11-19 22:11 | EX.ED.DYSGE1 ---
HPI History of Present Illness Chief Complaint: Hypertension [facility] Medical History Anxiety Hypertension Home Medications hydrochlorothiazide 25 mg tablet 25 mg PO DAILY #14 tabs 04/21/21 [Rx Last Taken Unknown] potassium chloride 10 mEq capsule,extended release 10 meq PO DAILY 08/24/21 [History Last Taken Unknown] amlodipine 5 mg tablet 5 mg PO DAILY 11/19/22 [History Last Taken Unknown] omeprazole 20 mg capsule,delayed release 20 mg PO DAILY 11/19/22 [History Last Taken 11/19/22] metoclopramide HCl 5 mg tablet (Reglan) 5 mg PO Q8H PRN PRN nausea and vomiting 7 days #20 tabs 11/20/22 [Rx Last Taken Unknown] Allergy/AdvReac Type Severity Reaction Status Date / Time azithromycin [From Zithromax] Allergy Hives Verified 11/19/22 20:58 bee venom protein (honey bee) Allergy Hives Verified 11/19/22 20:58 lisinopril Allergy Angioedema Verified 11/19/22 20:58 Family History Father Hypertension Mother Hypertension Surgical History H/O section H/O: hysterectomy Social History (Updated 08/24/21 @ 08:08 by Kari Steele) number of children: 5 current occupational status: unemployed Smoking Status: Never smoker second hand exposure: Yes alcohol intake: never substance use type: does not use what type of physical activity do you participate in: none seatbelt use: always do you feel safe at home: Yes EXAM Physical Exam Const Vital Signs: 11/19/22 20:58 11/19/22 23:09 Temperature 97.8 F Temperature Source Temporal Pulse Rate 88 Respiratory Rate 16 Respiratory Pattern Normal Blood Pressure 161/78 H Blood Pressure Mean 105 Pulse Ox 99 MDM MDM MDM Narrative Medical decision making narrative: HISTORY OF PRESENT ILLNESS: 57-year-old female here with concern for elevated blood pressure nausea and stress reaction. She states she felt like she is going to pass out. She further states 2 or 3 hours ago she developed lightheadedness like she is going to pass out but denies any chest pain or shortness of breath. Notes severe nausea. Denies any abdominal pain, urinary complaints, focal weakness, slurred speech, facial drooping. Denies headache at this time. The patient denies recent surgery in the last 4 weeks or immobilization in the last 3 days, denies previous diagnosis of DVT or PE, hemoptysis, unilateral leg swelling or malignancy with treatment the last 6 months or palliative. No estrogen use noted. REVIEW OF SYSTEMS: Pertinent positives: Nausea, vomiting, lightheadedness Pertinent negatives: Chest pain shortness of breath, syncope, focal weakness or numbness, headache PHYSICAL EXAM: Nursing triage notes reviewed, Vital signs reviewed Constitutional: please see mdm HENT: MMM Eyes: Pupils equal round and reactive to light, Extraocular muscles intact Neck: No stridor, no JVD, full neck ROM Lungs: Clear to auscultation, No wheezing or rales. No increased work of breathing, no conversational dyspnea, no accessory muscle use, no nasal flaring. No respiratory distress noted Heart: Regular rate and rhythm, No murmurs, No rubs and No gallops, 2+ distal pulses (radial, femoral, posterior tibial) in all extremities Abdomen: Soft, there is no tenderness, rigidity, rebound or guarding, no obvious peritoneal signs, no palpable pulsatile abdominal masses, no auscultated abdominal bruit : No CVAT Extremities: No edema Neuro: Alert and oriented x3, neuro exam at baseline, cranial nerves II through XII are intact. No pain with extraocular muscle movement. There is negative test of skew. 5 of 5 strength in upper and lower extremities in flexion extension. Intact sensation to light touch in upper and lower extremity dermatomes. No truncal or extremity ataxia. No dysdiadochokinesia. Normal gait. 2+ reflexes in upper and lower extremities. No meningeal signs. Negative Babinski. NIH of 0. Skin: No rash or lesions noted MEDICAL DECISION MAKING: Chief Complaint: Elevated blood pressure, nausea External records reviewed: Prior ED records reviewed: Seen in the ED in April 2021 for elevated blood pressure. She was given clonidine and ibuprofen and discharged home. Factors affecting care: History of hypertension on hydrochlorothiazide, anxiety Social determinants of health: Never smoker History obtained from others: Patient's son Consults: none [facility] Narrative: Patient was hemodynamically stable, afebrile, nontoxic-appearing. Blood pressure was mildly elevated. I considered the following differential diagnosis: Dehydration, anemia, electrolyte abnormality, arrhythmia, ACS Patient was initially treated with IV normal saline and Zofran. ALL IMAGES (IF OBTAINED) HAVE BEEN PERSONALLY REVIEWED AND INTERPRETED BY MYSELF. Chest x-ray read reviewed by myself shows no evidence of obvious pneumonia or pneumothorax EKG with normal sinus rhythm, left axis deviation, normal intervals, no STEMI CBC without leukocytosis, severe anemia, no thrombocytopenia. BMP with hypokalemia, no other electrolyte abnormalities, no anion gap, no acute kidney injury LFTs show no evidence of hepatobiliary pathology. Troponin is negative, no evidence of myocardial ischemia After initial treatments patient stated nausea is little better but still has intermittent nausea. Headache initially went away but has returned. Repeat neurologic exam this time was still benign and nonfocal. Gave the patient Reglan another 500 cc bolus. The amalgamation the patient's labs and images showed no evidence of acute pathology including no physical exam signs of acute intracranial normalities. No signs of significant infections, anemia, electrolyte disturbances, liver abnormalities, heart abnormalities. No evidence of infection such as pneumonia. Unclear etiology however likely not life-threatening. I suspect patient is suffering from a viral illness. Will give Reglan for home-going and strict return precautions as well as follow-up instructions. The patient and/or family, caregivers express understanding. The patient and/or family, caregivers agrees with the plan. Shared decision making: I will have a discussion with the patient and or visitors regarding risk/benefits of further testing or admission. They will be made aware of of the risk/benefits inherent in this decision they will be given the opportunity to voice understanding. Total critical care time today provided was at least 0 minutes. This excludes separately billable procedures. Critical care time (if documented) is secondary to the patient having high probability of clinically significant/life threatening deterioration in the patient's condition which required my urgent intervention. Impression: 1. Nausea and vomiting 2. Elevated blood pressure Dispo: Discharge Lab Data Attestation: I reviewed the patient's lab results. Labs: Laboratory Results - last 24 hr 11/19/22 23:10 WBC 9.0 RBC 5.29 Hgb 14.7 Hct 44.7 MCV 84.5 MCH 27.8 MCHC 32.9 RDW Std Deviation 41.1 RDW Coeff of [place] 13.3 Plt Count 235 MPV 11.0 Immature Gran % (Auto) 0.600 Neut % (Auto) 80.7 H Lymph % (Auto) 12.2 L [place] % (Auto) 5.0 Eos % (Auto) 0.9 Baso % (Auto) 0.6 Absolute Neuts (auto) 7.3 Absolute Lymphs (auto) 1.10 Nucleated RBC % 0 Sodium 139 Potassium 3.0 L Chloride 103 Carbon Dioxide 27.0 Anion Gap 9 BUN 8 Creatinine 0.85 Estim Creat Clear Calc 65.71 Est GFR (MDRD) Af Amer 88 Est GFR (MDRD) Non-Af 73 BUN/Creatinine Ratio 9.4 L Glucose 119 H Calcium 9.3 Total Bilirubin 0.40 AST 17 ALT 33 Alkaline Phosphatase 74 Troponin I High Sens 12 Total Protein 7.5 Albumin 3.8 Globulin 3.7 Albumin/Globulin Ratio 1.0 Radiography Chest X-Ray - ED: Read by ED Physician Diagnostic Testing: Clinical Impression(s) from Imaging Studies Chest X-Ray 11/19/22 22:32 IMPRESSION: No radiographic evidence of acute cardiopulmonary disease. Electronically Signed: Iron Montesinos MD at 0:08 EDT Reading Location ID and State: [facility] / [place] Tel , Service support , Discharge Plan Triage Chief Complaint: Hypertension ED Provider: Harinder Miguel Dx/Rx/DC Orders Instructions: ED Vomiting (Adult) Prescriptions: New metoclopramide HCl [Reglan] 5 mg tablet 5 mg PO Q8H PRN PRN (Reason: nausea and vomiting) 7 Days Qty: 20 0RF No Action potassium chloride 10 mEq capsule, extended release 10 meq PO DAILY hydrochlorothiazide 25 mg tablet 25 mg PO DAILY Qty: 14 0RF omeprazole 20 mg capsule,delayed release(DR/EC) 20 mg PO DAILY Patient Comments: TAKE 1 CAPSULE BY MOUTH ONCE DAILY 1/2 (ONE-HALF) HOUR BEFORE BREAKFAST amlodipine 5 mg tablet 5 mg PO DAILY Patient Comments: TAKE 1 TABLET BY MOUTH ONCE DAILY Primary Care Provider: Musa Mcguire Referrals: Musa Mcguire MD [Primary Care Provider] - Activity Restrictions/Additional Instructions: Thank you for trusting us with your care today! Please take Tylenol (2 pills, 650 mg), ibuprofen (2 pills, 400 mg) every 6 hours as needed for pain and fever control. Please take Reglan as needed for nausea vomiting headache. Please return to the emergency department if your symptoms change or worsen. Specifically develop headache, you lose consciousness, develop loss sensation or movement in your extremities. Please follow with your primary care physician for further outpatient evaluation and management. Disposition Disposition: Home, Self Care Discharge Date/Time: 11/20/22 02:51
--- NOTE | 2022-11-19 22:32 | EKG12_ITS ---
Test Reason : HNT Blood Pressure : / mmHG Vent. Rate : 081 BPM Atrial Rate : 081 BPM P-R Int : 182 ms QRS Dur : 094 ms QT Int : 390 ms P-R-T Axes : 089 -44 053 degrees QTc Int : 453 ms Normal sinus rhythm Left axis deviation Pulmonary disease pattern Abnormal ECG Confirmed by WAQAR SMITH, CATRACHO ([id number]), senior technical editor NAVA CARMONA ([id number]) on 11/23/2022 2:22:17 PM Referred By: Confirmed By:CATRACHO ZAVALETA MD
--- NOTE | 2022-11-19 22:32 | RAD_ITS ---
INDICATION: Lightheadedness EXAMINATION/TECHNIQUE: X-RAY - portable upright AP chest x-ray COMPARISON: 11/22/2019 FINDINGS: LINES/DEVICES: None. LUNGS: No consolidation, edema or effusion. No pneumothorax. MEDIASTINUM AND CARDIOVASCULAR STRUCTURES: Cardiac silhouette not enlarged. Central airways and mediastinal contour are unremarkable. BONES AND SOFT TISSUES: Unremarkable. RAD/Chest 1 View (Portable) IMPRESSION: No radiographic evidence of acute cardiopulmonary disease. Electronically Signed: Iron Montesinos MD at 0:08 EDT ,
[2022-11-19] MEDS: 0.9% Normal Saline (1000mL) 1,000 ML 1000 ML IV (23:06)
[2022-11-19] MEDS: Ondansetron 4 MG/2 ML Vial IV (23:06)
[2022-11-19 23:20] LABS: Absolute Neutrophil Count 7.3 X10^3/uL (2.0-7.7); Basophil# 0.05 X10^3/uL; Basophil% 0.6 % (0-1); Eosinophil# 0.08 X10^3/uL; Eosinophils% 0.9 % (0-5); Hematocrit 44.7 % (37-47); Hemoglobin 14.7 g/dL (12.0-15.0); Lymphocyte % 12.2 % (19-41); Mean Corp Hgb Conc 32.9 g/dL (32-36); Mean Corpuscular Hgb 27.8 pg (27.0-32.0); Mean Corpuscular Volume 84.5 fL (81-99); Monocyte# 0.45 X10^3/uL; NRBC Flagged by Analyzer 0 % (0-5); Neutrophil % 80.7 % (47-70); Platelet Count 235 K/mm3 (150-450); RBC Distribution Width CV 13.3 % (11.6-14.6); RBC Distribution Width SD 41.1 fl (35.1-43.9); Red Blood Count 5.29 M/mm3 (4.2-5.4)
[2022-11-19 23:41] LABS: AST(SGOT) 17 U/L (15-37); Alanine Aminotransfer ALT/SGPT 33 U/L (13-56); Albumin, Serum 3.8 g/dL (3.2-5.0); Alkaline Phosphatase 74 U/L (45-117); Anion Gap 9 (5-15); BUN 8 mg/dL (7-18); BUN/Creat Ratio 9.4 RATIO (10-20); Calcium,Total 9.3 mg/dL (8.5-10.1); Chloride 103 mmol/L (98-107); Creatinine, Serum 0.85 mg/dL (0.55-1.02); EST Glomerular Filtration Rate 73 mL/min (>60); Est Glom Filt Rate - Afr Amer 88 mL/min (>60); Estimated Creatinine Clearance 65.71 ml/min; Globulin 3.7 g/dL (2.2-4.2); Glucose 119 mg/dL (74-106); Protein, Total 7.5 g/dL (6.4-8.2); Sodium Level 139 mmol/L (136-145); Troponin-I HS 12 pg/mL (3.0-54.0)
[2022-11-20] MEDS: Metoclopramide 10 MG/2 ML Vial 5 MG IV (00:51)
[2022-11-20] MEDS: 0.9% Normal Saline (500mL Bag) 500 ML 999 ML IV (01:00)
== END 2022-11-20 02:51 | disposition home or self-care (01) ==
PROVIDERS: Emergency Provider Emergency Medicine; PCP Family Medicine; Visit Provider Emergency Medicine
DX: R11.2 Nausea with vomiting, unspecified (principal); I10 Essential (primary) hypertension; F41.9 Anxiety disorder, unspecified; Z79.899 Other long term (current) drug therapy
CPT/HCPCS: 71045; 80053; 84484; 85025; 93005; 96361; 96374; 96375; 99283; J7030; J7040; J2405

== ENCOUNTER → 2022-12-13 | Outpatient (CLI) | payer MEDICAID, SELFPAY ==
--- NOTE | 2022-12-13 16:13 | BI_ITS ---
MAMMOGRAPHY - BILATERAL SCREENING REASON FOR EXAM: Female, 57 years old. Routine annual screening examination. PERTINENT HISTORY: Non-contributory. TECHNIQUE: Digital bilateral breast michele (3D mammographic acquisition) in the CC and MLO projections. 2-D mediolateral oblique (MLO) and craniocaudad (CC) views of both breasts were obtained. CAD: Full Field Digital Mammography with Computer Added Detection was performed. COMPARISON: Comparison is made with prior study May 11, 2021 and June 16, 2018. FINDINGS: Breast Composition: The breasts are heterogeneously dense, which may obscure small masses. There are no dominant masses or suspicious calcifications. Stable small benign-appearing bilateral axillary lymph nodes. No other significant abnormalities are identified. There has been no significant change since the prior study. BI/SCRN MAMM (CAD)W/MICHELE BILAT IMPRESSION: Stable bilateral screening mammogram. Yearly follow-up mammogram recommended. (A) ASSESSMENT CATEGORY: BIRADS Category 2: Benign. A letter regarding these results will be sent to the patient by the facility within 30 days. Approximately 10% of breast cancers are not detected by mammography. A normal mammogram should not delay biopsy of a clinically suspicious abnormality. [id number] Electronically Signed: Wilmar Nunes MD at 8:40 EDT ,
== END | disposition home or self-care (01) ==
PROVIDERS: PCP Family Medicine; Referring Provider Obstetrics & Gynecology; Visit Provider Obstetrics & Gynecology
DX: Z12.31 Encounter for screening mammogram for malignant neoplasm of breast (principal)
CPT/HCPCS: 77063; 77067

== ENCOUNTER 2024-06-01 16:41 | Emergency (ER) | payer MEDICAID, SELFPAY ==
[2024-06-01 16:42] VITALS: BP 152/111; PULSE 85; RESP 18; TEMP 37.1; O2SAT 98; BMI 35.9
--- NOTE | 2024-06-01 17:28 | EKG12_ITS ---
Test Reason : ARM BURING Blood Pressure : */* mmHG Vent. Rate : 82 BPM Atrial Rate : 82 BPM P-R Int : 188 ms QRS Dur : 96 ms QT Int : 398 ms P-R-T Axes : 75 -52 67 degrees QTcB Int : 464 ms Normal sinus rhythm Left anterior fascicular block Cannot rule out Inferior infarct , age undetermined Abnormal ECG Confirmed by Yusuf Webber ([id number]), scientific publications editor REINA AUGUSITN [id number]) on 06/02/2024 11:30:09 AM Referred By: JEANNE/KRISTI Confirmed By: Yusuf Webber
--- NOTE | 2024-06-01 17:40 | EDS_ITS ---
HPI <ANDREW Knox - Last Filed: 06/01/24 21:47> History of Present Illness Chief Complaint: Anxiety Narrative Narrative: 58-year-old female with past medical history of hypertension and anxiety presents pain in her left shoulder and mid back. She gets episodes of sharp pain in the shoulder and between her shoulder blades that last seconds to a minute. It started 2 weeks ago and happen about twice a day but seem to be more frequent recently. She noticed it when she was driving in the car. It is not associated with exertion she has no pleuritic pain or shortness of breath. She has no pain that radiates down the arm or paresthesias or weakness. She initially thought it might have been from picking up her granddaughter because her shoulder felt slightly sore but today it happened when she was just sitting in the car and she also felt nauseous prompting her to be evaluated. She states her anxiety has been a little worse than usual. She is not on anxiety medication. She takes amlodipine, HCTZ, and omeprazole. She does not smoke. She has no personal cardiac history. No history of DVT/PE risk factors. [facility] <ANDREW Knox - Last Filed: 06/01/24 21:47> [facility] Medical History Anxiety Hypertension Home Medications ?Medication ?Instructions ?Recorded ?Last Taken ?Type hydrochlorothiazide 25 mg tablet 25 mg PO DAILY #14 ta bs 04/21/21 Unknown Rx potassium chloride 10 mEq 10 meq PO DAILY 08/24/21 Unk nown History capsule,extended release amlodipine 5 mg tablet 5 mg PO DAILY 11/19/22 Unkno wn History omeprazole 20 mg capsule,delayed 20 mg PO DAILY 11/19/22 History release metoclopramide HCl 5 mg tablet 5 mg PO Q8H PRN PRN helen sea and 11/20/22 Unknown Rx (Reglan) vomiting 7 days #20 tabs albuterol sulfate 90 mcg/actuation inhalation 02/23/24 Unknown History aerosol inhaler famotidine 10 mg tablet 10 mg PO QDAY 02/23/24 Unkno wn History fluticasone propionate 110 inhalation 02/23/24 Unknown History mcg/actuation HFA aerosol inhaler Allergy/AdvReac Type Severity Reaction Status Date / [facility] Allergy Hives Verified 06/01/24 16:44 bee venom protein (honey bee) Allergy Hives Verified 06/01/24 16:44 lisinopril Allergy Angioedema Verified 06/01/24 16:44 Family History Father Hypertension Kidney disease Mother Hypertension Heart disease Kidney disease Son Asthma Grandfather CVA (cerebral vascular accident) Brother Non-Hodgkin lymphoma Other Cancer Surgical History H/O section H/O: hysterectomy Social History (Updated 06/01/24 @ 17:55 by Machelle Bain) household members: spouse housing: house number of children: 5 current occupational status: unemployed Smoking Status: Never smoker second hand exposure: Yes alcohol intake: never substance use type: does not use what type of physical activity do you participate in: none seatbelt use: always do you feel safe at home: Yes ROS <ANDREW Knox - Last Filed: 06/01/24 21:47> ROS ED ROS Narrative Constitutional: Negative for fever, chills, malaise. CVS: Negative for palpitations, chest pain, syncope. Respiratory: Negative for shortness of breath, cough. GI: Negative for abdominal pain, nausea, vomiting, diarrhea. EXAM <ANDREW Knox - Last Filed: 06/01/24 21:47> Physical Exam Narrative Exam Narrative: CONST: Patient sitting in no acute distress. EYES: Normal inspection. NECK: Normal inspection. No midline tenderness or step-offs RESP: No respiratory distress, CTAB. CVS: Regular rate and rhythm, no murmur, no gallop. ABD: Soft and nontender, no guarding or rebound, nondistended. Back: Normal inspection, no midline tenderness. SKIN: Color normal, no rash, warm, dry, intact. EXTREMITIES: Normal appearance, full range of motion of both upper extremities, 5/5 strength, 2+ radial pulses. No reproducible tenderness of the left upper extremity. NEURO: Alert and answering questions appropriately. PSYCH: Normal affect. Const Vital Signs: 06/01/24 16:42 06/01/24 17:55 06/01/24 18:42 Temperature 98.7 F Temperature Source Temporal Pulse Rate 85 Respiratory Rate 18 16 Blood Pressure 152/111 H Blood Pressure Mean 124 Pulse Ox 98 98 Oxygen Delivery Method Room Air Room Air 06/01/24 18:49 Temperature 98.7 F Temperature Source Pulse Rate 85 Respiratory Rate 16 Blood Pressure 152/111 H Blood Pressure Mean 124 Pulse Ox 98 Oxygen Delivery Method <Dr. Brandon Galeano MD - Last Filed: 06/01/24 18:41> Physical Exam Const Vital Signs: 06/01/24 16:42 06/01/24 17:55 06/01/24 18:42 Temperature 98.7 F Temperature Source Temporal Pulse Rate 85 Respiratory Rate 18 16 Blood Pressure 152/111 H Blood Pressure Mean 124 Pulse Ox 98 98 Oxygen Delivery Method Room Air Room Air 06/01/24 18:49 Temperature 98.7 F Temperature Source Pulse Rate 85 Respiratory Rate 16 Blood Pressure 152/111 H Blood Pressure Mean 124 Pulse Ox 98 Oxygen Delivery Method MDM <ANDREW Knox - Last Filed: 06/01/24 21:47> [facility] Narrative Medical decision making narrative: 58-year-old female has had atypical left shoulder and upper thoracic back pain between her shoulder blades episodically over the last 2 weeks. No chest pain. She appears well and nontoxic. Vital signs stable. Her cardiopulmonary exam is normal. She has no reproducible tenderness of her chest., Back, or upper extremities. She has full range of motion and is neurovascular intact. She is not complaining of neck pain and has no radicular symptoms. Cardiac workup was ordered. CBC and BMP are unremarkable except for hypokalemia of 3.0 and she is on potassium supplementation chronically. EKG is sinus rhythm without ischemic changes and troponin is 11. Since she has had pain for 2 weeks and is currently pain-free I do not think serial enzymes are indicated. I recommended [id number] pain relievers and follow-up with her primary care doctor. She was discharged in stable condition. Differential includes but not limited to: ACS, musculoskeletal, radiculopathy, I considered dissection but pain less seconds in nature, is not tearing, she does not appear to be in any distress I have personally performed a face to face assessment of the patient and have reviewed the HUONG Note. I performed a substantive portion of the visit including all aspects of the following. My carvajal findings include: History is 58-year-old female with atypical back pain in her upper thoracic region between her shoulder blades. No fall injury or trauma. Says she has been doing a lot of housecleaning lately and picking up her grandchild. Nothing particular makes it better or worse. No chest pain. No shortness of breath. She does have a known history of hypertension. No prior DVT or PE or risk factors. No leg pain or swelling. The pain is not pleuritic. Exam is [well-appearing 58-year-old female. Vital signs are stable afebrile. Pulse ox 98% on room air no hypoxia. H EENT exam pupils round reactive light. Neck nontender no JVD. Lungs clear to auscultation bilaterally. Heart regular rhythm no murmur. Rate about 80. Chest wall and ribs nontender. Abdomen soft nontender. Moving all 4 extremities. 5 out of 5 piano assembler strength. Equal symmetrical radial pulses. Dorsi plantarflexion intact. Calves are nontender without edema or cords. Back nontender. There is no reproducible pain in her back. No bruising or signs of trauma. Neurologically she is awake alert no focal motor deficits.] Medical Decision Making [clinically I suspect musculoskeletal pain. She underwent a cardiac workup it was negative. Normal CBC. Chemistries were normal other than a potassium of 3.0 she is on potassium replacement. Troponin was 11. Normal chest x-ray. This does not sound cardiac. Is not exertional. She is having no shortness of breath. It has been going on 2 weeks I do not think she needs a second troponin.] Other additions or changes: [None] Lab Data Attestation: I reviewed the patient's lab results. Labs: Laboratory Results - last 24 hr 06/01/24 17:44 WBC 6.9 RBC 5.13 Hgb 14.5 Hct 43.1 MCV 84.0 MCH 28.3 MCHC 33.6 RDW Std Deviation 41.1 RDW Coeff of Ivan[place] 13.2 Plt Count 240 MPV 10.5 Immature Gran % (Auto) 0.400 Neut % (Auto) 68.4 Lymph % (Auto) 23.3 [place] % (Auto) 5.8 Eos % (Auto) 1.7 Baso % (Auto) 0.4 Absolute Neuts (auto) 4.7 Absolute Lymphs (auto) 1.60 Nucleated RBC % 0 Sodium 139 Potassium 3.0 L Chloride 100 Carbon Dioxide 27.4 Anion Gap 11 BUN 11 Creatinine 0.87 Estim Creat Clear Calc 80.09 Est GFR (MDRD) Non-Af 78 BUN/Creatinine Ratio 13.0 Glucose 112 H Calcium 9.7 Troponin T High Sens 11 Radiography Diagnostic Testing: Clinical Impression(s) from Imaging Studies Chest X-Ray 06/01/24 17:50 IMPRESSION: NEGATIVE CHEST Reading Location: [facility] EKG Initial EKG: Attestation: I personally reviewed and interpreted this EKG as follows: Interpretation: Sinus Rhythm and No Acute Injury Pattern Comments: Normal sinus rhythm 82 bpm Left anterior fascicular block No acute ischemic changes <Dr. Brandon Galeano MD - Last Filed: 06/01/24 18:41> MDM MDM Narrative Medical decision making narrative: I have personally performed a face to face assessment of the patient and have reviewed the HUONG Note. I performed a substantive portion of the visit including all aspects of the following. My carvajal findings include: History is 58-year-old female with atypical back pain in her upper thoracic region between her shoulder blades. No fall injury or trauma. Says she has been doing a lot of housecleaning lately and picking up her grandchild. Nothing particular makes it better or worse. No chest pain. No shortness of breath. She does have a known history of hypertension. No prior DVT or PE or risk factors. No leg pain or swelling. The pain is not pleuritic. Exam is [well-appearing 58-year-old female. Vital signs are stable afebrile. Pulse ox 98% on room air no hypoxia. H EENT exam pupils round reactive light. Neck nontender no JVD. Lungs clear to auscultation bilaterally. Heart regular rhythm no murmur. Rate about 80. Chest wall and ribs nontender. Abdomen soft nontender. Moving all 4 extremities. 5 out of 5 piano assembler strength. Equal symmetrical radial pulses. Dorsi plantarflexion intact. Calves are nontender without edema or cords. Back nontender. There is no reproducible pain in her back. No bruising or signs of trauma. Neurologically she is awake alert no focal motor deficits.] Medical Decision Making [clinically I suspect musculoskeletal pain. She underwent a cardiac workup it was negative. Normal CBC. Chemistries were normal other than a potassium of 3.0 she is on potassium replacement. Troponin was 11. Normal chest x-ray. This does not sound cardiac. Is not exertional. She is having no shortness of breath. It has been going on 2 weeks I do not think she needs a second troponin.] Other additions or changes: [None] Lab Data Lab results narrative: CBC white count of 6. H&H 14 and 43. Platelets 240. Electrolytes show a potassium of 3.0. Gap 11. Normal BUN and creatinine. Glucose 112. Troponin 11. Chest x-ray normal. Labs: Laboratory Results - last 24 hr 06/01/24 17:44 WBC 6.9 RBC 5.13 Hgb 14.5 Hct 43.1 MCV 84.0 MCH 28.3 MCHC 33.6 RDW Std Deviation 41.1 RDW Coeff of Ivan[place] 13.2 Plt Count 240 MPV 10.5 Immature Gran % (Auto) 0.400 Neut % (Auto) 68.4 Lymph % (Auto) 23.3 [place] % (Auto) 5.8 Eos % (Auto) 1.7 Baso % (Auto) 0.4 Absolute Neuts (auto) 4.7 Absolute Lymphs (auto) 1.60 Nucleated RBC % 0 Sodium 139 Potassium 3.0 L Chloride 100 Carbon Dioxide 27.4 Anion Gap 11 BUN 11 Creatinine 0.87 Estim Creat Clear Calc 80.09 Est GFR (MDRD) Non-Af 78 BUN/Creatinine Ratio 13.0 Glucose 112 H Calcium 9.7 Troponin T High Sens 11 Radiography Chest X-Ray - ED: 2 View, Read by ED Physician, Read by Radiologist, Normal, Heart, Lungs, Mediastinum, Bony Structures and No Acute Disease Diagnostic Testing: Clinical Impression(s) from Imaging Studies Chest X-Ray 06/01/24 17:50 IMPRESSION: NEGATIVE CHEST Reading Location: [facility] Chest x-ray, 2 views, AP and lateral, interpreted by myself and the radiologist shows no acute abnormality. Normal cardiac silhouette. Normal lung milligan. Normal mediastinum and aorta. Discharge Plan Triage Chief Complaint: Anxiety ED Midlevel Provider: Danya Osborne ED Provider: Brandon Galeano Dx/Rx/DC Orders Clinical Impression: Pain in left shoulder, Anxiety, Chronic hypokalemia Instructions: ED Pain, Acute, Uncertain Cause Prescriptions: No Action potassium chloride 10 mEq capsule, extended release 10 meq PO DAILY fluticasone propionate 110 mcg/actuation HFA aerosol inhaler inhalation albuterol sulfate 90 mcg/actuation HFA aerosol inhaler inhalation famotidine 10 mg tablet 10 mg PO QDAY hydrochlorothiazide 25 mg tablet 25 mg PO DAILY Qty: 14 0RF omeprazole 20 mg capsule,delayed release(DR/EC) 20 mg PO DAILY Patient Comments: TAKE 1 CAPSULE BY MOUTH ONCE DAILY 1/2 (ONE-HALF) HOUR BEFORE BREAKFAST amlodipine 5 mg tablet 5 mg PO DAILY Patient Comments: TAKE 1 TABLET BY MOUTH ONCE DAILY metoclopramide HCl [Reglan] 5 mg tablet 5 mg PO Q8H PRN PRN (Reason: nausea and vomiting) 7 Days Qty: 20 0RF Primary Care Provider: Musa Mcguire Referrals: Musa Mcguire MD [Primary Care Provider] - Activity Restrictions/Additional Instructions: Your screening labs appear normal other than low potassium and you are already on potassium replacement supplementation. I recommend close follow-up with your primary care doctor and they may do further cardiac evaluation, although based on your symptoms I have lower concern that this is your heart. If you have new or worsening symptoms like chest pain or shortness of breath or the pain becomes more severe or prolonged please be reevaluated in the ER. Print Language: Guamanian Disposition Disposition: Home, Self Care Discharge Date/Time: 06/01/24 18:51
--- NOTE | 2024-06-01 17:50 | RAD_ITS ---
PROCEDURE: CHEST PA AND LATERAL 06/01/2024 REASON FOR EXAM: CHEST PAIN TECHNIQUE: Frontal and lateral views of the chest. FINDINGS: Hardware: None Heart: The heart size is normal. Mediastinum: The mediastinal contour is unremarkable. Lungs: The lungs are clear. Bones: The bones are unremarkable. RAD/Chest PA and Lateral IMPRESSION: NEGATIVE CHEST Reading Location: [id number]
[2024-06-01 17:55] VITALS: O2SAT 98
[2024-06-01] MEDS: Aspirin 81 MG TAB.CHEW 324 MG PO (17:57)
[2024-06-01 17:59] LABS: Absolute Neutrophil Count 4.7 X10^3/uL (2.0-7.7); Basophil# 0.03 X10^3/uL; Basophil% 0.4 % (0-1); Eosinophil# 0.12 X10^3/uL; Eosinophils% 1.7 % (0-5); Hematocrit 43.1 % (37-47); Hemoglobin 14.5 g/dL (12.0-15.0); Lymphocyte % 23.3 % (19-41); Mean Corp Hgb Conc 33.6 g/dL (32-36); Mean Corpuscular Hgb 28.3 pg (27.0-32.0); Mean Platelet Vol. 10.5 fl (6.2-12.0); Monocyte% 5.8 % (0-10); NRBC Flagged by Analyzer 0 % (0-5); Neutrophil % 68.4 % (47-70); Platelet Count 240 K/mm3 (150-450); RBC Distribution Width CV 13.2 % (11.6-14.6); RBC Distribution Width SD 41.1 fl (35.1-43.9); Red Blood Count 5.13 M/mm3 (4.2-5.4); White Blood Count 6.9 K/mm3 (4.4-11.0)
[2024-06-01 18:20] LABS: Anion Gap 11 (5-15); BUN 11 mg/dL (4-19); Calcium,Total 9.7 mg/dL (7.6-11.0); Carbon Dioxide 27.4 mmol/L (21.0-32.0); Chloride 100 mmol/L (98-108); Creatinine, Serum 0.87 mg/dL (0.70-1.20); EST Glomerular Filtration Rate 78 (>60); Estimated Creatinine Clearance 80.09 ml/min (50-250); Glucose 112 mg/dL (70-99); Sodium Level 139 mmol/L (133-145); Troponin T High Sensitivity 11 ng/L (<=14)
[2024-06-01 18:42] VITALS: RESP 16
[2024-06-01 18:49] VITALS: BP 152/111; PULSE 85; RESP 16; TEMP 37.1; O2SAT 98
== END 2024-06-01 18:51 | disposition home or self-care (01) ==
PROVIDERS: Physician Assistant; Emergency Provider Emergency Medicine; PCP Family Medicine; Visit Provider Emergency Medicine
DX: M25.512 Pain in left shoulder (principal); E87.6 Hypokalemia; F41.9 Anxiety disorder, unspecified
CPT/HCPCS: 71046; 80048; 84484; 85025; 93005; 99283